=== PATIENT | female | born 1995 ===

== ENCOUNTER 2017-11-20 23:13 | Emergency (ER) | payer BC, MEDICAID ==
[2017-11-20 23:23] VITALS: RESP 18
[2017-11-21] MEDS ORDERED: Alum-Mag Hydrox-Simethicone Susp (30 mL) PO STA (00:14)
--- NOTE | 2017-11-21 00:24 | ED PDOC ---
HPI: Abdomen Time Seen by Provider: 11/20/17 23:43 Chief Complaint (Nursing): Abdominal Pain Additional Complaint(s): 22 YO F @ 16 weeks with a past medical history of GERD presents to the ER with epigastric pain which started on tuesday and has been progressivly getting worse. Describes pain at a 6/10 initially and now rates it at a 8/10. Patient states that the pain began to worsen after she ate a spicy chicken sandwhich and eats a lot of ketchup. Pain is worsen when she eats something. Denies any nausea, vomiting or diarrhea. PMH: GERD PSH: Endoscopy, d&C Allergy: shellfish, penutbutter FH: Gallstones, dM , HTN, HLD in mother SH: Denies smoking, drinking or illicit drug use. PMD: Dr. Matty HUTSONN: Dr. Moreno/Dr. Mullen Past Medical History Reviewed: Historical Data, Nursing Documentation, Vital Signs Vital Signs: Last Vital Signs Temp 97.4 F L 11/21/17 03:03 Pulse 88 11/21/17 03:03 Resp 18 11/21/17 03:03 BP 117/79 11/21/17 03:03 Pulse Ox 100 11/21/17 03:03 - Medical History PMH: GERD - Surgical History Surgical History: Endoscopy Other surgeries: D&C - Family History Family History: States: Diabetes, Hypertension, Other Other Family History: Gallstones - Social History Current smoker - smoking cessation education provided: No Alcohol: None Drugs: Denies - Home Medications Home Medications: Ambulatory Orders Medication Instructions Recorded Cyclobenzaprine [Cyclobenzaprine 10 mg PO TID PRN #15 tab 06/27/17 HCl] Famotidine [Pepcid] 20 mg PO BID PRN 5 Days tab 11/21/17 - Allergies Allergies/Adverse Reactions: Allergies Allergy/AdvReac Type Severity Reaction Status Date / Time shellfish derived Allergy RASH Verified 11/20/17 23:19 Review of Systems ROS Statement: Except As Marked, All Systems Reviewed And Found Negative Physical Exam - Physical Exam Appears: Positive for: No Acute Distress Head Exam: Positive for: NORMAL INSPECTION Skin: Positive for: Normal Color, Warm, Dry Eye Exam: Positive for: Normal appearance Cardiovascular/Chest: Positive for: Regular Rate, Rhythm, Chest Non Tender Respiratory: Positive for: Normal Breath Sounds. Negative for: Wheezing Gastrointestinal/Abdominal: Positive for: Soft, Tenderness (epgastric region and right upper quadrant), Distended Back: Positive for: Normal Inspection Extremity: Negative for: Calf Tenderness Neurologic/Psych: Positive for: Alert, slasher hand II-XII, Oriented. Negative for: Motor/Sensory Deficits - Laboratory Results Result Diagrams: 11/21/17 01:37 11/21/17 01:37 - ECG O2 Sat by Pulse Oximetry: 99 Medical Decision Making Medical Decision Making: Abdominal U/S : Did no show gallstones or any acute findings. Only gas noted Malox given Pepcid 40 mg IV provided relief. Patient appears to be doing well Disposition - Clinical Impression Clinical Impression: Abdominal pain during - Patient ED Disposition Is Patient to be Admitted: No - Disposition Referrals: Arjun Burnett MD [Primary Care Provider] - Disposition: Routine/Home Disposition Time: : Condition: IMPROVED Additional Instructions: Follow up with PMD in 2-3 days. If symptoms worsen please return to the ER. Prescriptions: Famotidine [Pepcid] 20 mg PO BID PRN 5 Days tab PRN Reason: Other Instructions: Acid Reflux (Gastroesophageal Reflux Disease) During Forms: [facility] (Slovak) - POA Present On Arrival: None
[2017-11-21] MEDS ORDERED: Alum-Mag Hydrox-Simethicone Susp (30 mL) ONE (01:14)
[2017-11-21 01:44] LABS: BASO % 0.2 % (0.0-2.0); EOS # 0.2 K/uL (0.0-0.7); EOS % 1.4 % (0.0-4.0); HEMOGLOBIN 12.3 g/dL (12.0-16.0); LYMPH # 2.3 K/uL (1.0-4.3); MEAN CELL VOLUME 95.5 fl (81.0-99.0); MEAN CORPUSCULAR HEMOGLOBIN 32.5 pg (27.0-31.0); MEAN CORPUSCULAR HGB CONC 34.1 g/dL (33.0-37.0); MEAN PLATELET VOLUME 8.5 fl (7.2-11.7); MONO # 0.7 K/uL (0.0-0.8); MONO % 6.2 % (0.0-10.0); NEUT # 8.5 K/uL (1.8-7.0); NEUT % 72.2 % (50.0-75.0); NRBC % 0.1 % (0.0-0.0); RBC 3.8 Mil/uL (3.80-5.20); RED CELL DISTRIBUTION WIDTH 12.9 % (11.5-14.5); WHITE BLOOD COUNT 11.8 K/uL (4.8-10.8)
[2017-11-21 01:53] LABS: ALBUMIN 3.6 g/dL (3.5-5.0); ALT/SGPT 26 U/L (9-52); AST/SGOT 21 U/L (14-36); BLOOD UREA NITROGEN 11 mg/dl (7-17); CALCIUM 9.4 mg/dL (8.4-10.2); GFR AFRICAN-AMERICAN > 60; GFR NON-AFRICAN AMERICAN > 60; LIPASE 69 U/L (23-300)
[2017-11-21 03:04] VITALS: BP 117/79; PULSE 88; TEMP 97.4
[2017-11-21 06:29] VITALS: O2SAT 99
--- NOTE | 2017-11-21 10:47 | US ---
HISTORY: abdominal pain COMPARISON: None. TECHNIQUE: Sonographic evaluation of the right upper quadrant of the abdomen. FINDINGS: LIVER: Measures 13.2 cm in length. Patent portal vein. Portal venous flow: Hepatopetal. Unremarkable echogenicity of the liver parenchyma. No mass. No intrahepatic bile duct dilatation. GALLBLADDER: Unremarkable. No gallstones. COMMON BILE DUCT: Measures 3.6 mm. No stones. No dilatation. PANCREAS: Unremarkable as visualized. No mass. No ductal dilatation. RIGHT KIDNEY: Measures 3.5 x 4.3 x 11.6 cm in length. Normal echogenicity. No calculus, mass, or hydronephrosis. AORTA: No aneurysmal dilatation. IVC: Unremarkable. OTHER FINDINGS: None . IMPRESSION: No significant or acute findings to account for/ related to the clinical presentation. Concordant results (preliminary interpretation) provided by [facility]. Procedure Completed: 01:32 Preliminary ([facility]) Report: Dictated and Authenticated: To 0 5 Final Interpretation: 10:45.
== END 2017-11-21 03:05 | disposition home or self-care (01) ==
LOC: H.ER 23:13
DX: O26.899 Other specified pregnancy related conditions, unspecified trimester (principal); K21.9 Gastro-esophageal reflux disease without esophagitis; Z82.49 Family history of ischemic heart disease and other diseases of the circulatory system